=== PATIENT | female | born 1995 | race Caucasian/White ===

== ENCOUNTER → 2016-07-05 13:15 | Outpatient (CLI) | payer MEDICAID | END | disposition home or self-care (01) | LOC: D.US 13:15 | DX: O28.1 Abnormal biochemical finding on antenatal screening of mother (principal) ==

== ENCOUNTER 2016-11-03 05:37 | Inpatient (IN) | payer MEDICAID ==
[2016-11-03] VITALS (10 sets, daily range): BP systolic 103–132; BP diastolic 58–87; Ht 152.4 cm; Wt 51.4 kg
[~2016-11-03] VITALS: Ht 152.4 cm; Wt 51.4 kg
[2016-11-03] MEDS ORDERED: SLOW RELEASE I160 MG (06:10)
[2016-11-03 06:30] LABS: HEMATOCRIT 33.7 % (36.0-48.0); HEMOGLOBIN 11.6 g/dL (12-16); MCH 31.4 pg (26.0-34.0); MCHC 34.4 g/dL (31.0-37.0); MCV 91.3 fL (80.0-100.0); MEAN PLATELET VOLUME 11.2 fL (7.4-10.4); RBC 3.69 10x6/uL (4.00-5.40); RDW 14.5 % (11.5-14.5); WBC 9.7 10x3/uL (4.8-10.8)
--- NOTE | 2016-11-03 08:47 | NUR ---
FUNDUS MIDLINE, FIRM, AT THE UMBILICUS. LOCIA MODERATE
--- NOTE | 2016-11-03 09:06 | NUR ---
Received by bed to room with bedside report. Pt is awake and positions self to sitting up in bed. Rates pain at 3/10 at this time, she is able to move her feet only as of now, she states her understanding that feeling to her legs will gradually return. IV to right hand patent and infusing NS with 20units pitocin placed on pump per orders. SCD on and connected to pump that is turned on. Fundus firm at u/1 with scant bleeding noted without clots. Correa to bedside drain with 250ml clear urine to collection canister. Bikini incision with steri strips clean and dry, offered ice pack to cover incision and aid with pain relief but pt refuses She does use small pillow to brace abdomen as she takes several deep breaths and coughs Denies nausea and ask for large ice water to drink. Nursery nurse at bedside at this time.
--- NOTE | 2016-11-03 09:16 | NUR ---
Demerol lead game designer started, 50mg loading dose given. Family allowed to room. Pt is provided with nursery number to call to check on infant.
--- NOTE | 2016-11-03 09:30 | NUR ---
fundus firm at u/1, rates pain at 2/10. large cup of ice per pt request. family at bedside, call light in reach.
--- NOTE | 2016-11-03 09:45 | NUR ---
fundus firm with massage, no clots noted.
--- NOTE | 2016-11-03 10:15 | NUR ---
fundus firm at u/2, light bleeding and no clots noted. Tracey pad changed and aguayo care given. continue to rate pain at 3/10.
--- NOTE | 2016-11-03 10:50 | NUR ---
fundus firm at u/1, scant bleeding noted at this time and no clots with massage. Pt denies needs for nurse.
--- NOTE | 2016-11-03 12:31 | NUR ---
PT'S IV PUMP SOUNDING. THIS RN TO BEDSIDE. NEW BAG OF PITOCIN UP TO INFUSE AT 125ML/HR. PT REQUEST PADS/CHUX BE CHANGED. PERICARE DONE. PADS/CHUX CHANGED, ONE NICKEL SIZE CLOT NOTED. SCANT TO SMALL LOCHIA NOTED. PT MOVES SELF UP IN BED. REQUEST TO KNOW WHEN SHE CAN GET OUT OF BED. TEACHING PROVIDED. PT VERBALIZES UNDERSTANDING AND IS AGREEABLE. NO FURTHER NEEDS VOICED AT THIS TIME.
--- NOTE | 2016-11-03 13:15 | NUR ---
Correa bag emptied, total of 1000 ml clear urine. in crib at bedise. side rails up x 2 with call light in reach. Rate pain at 1/10
--- NOTE | 2016-11-03 15:15 | NUR ---
called to room, assistance provided with changing shirt and swaddling in blankets. Pt rates pain at 1/10 and questions when she will be able to get up and start walking, explained that typcially it is 12 hours post delivery but orders would be verified. Denies any needs at this time. Side rails up x 2 with phone and call light in reach.
--- NOTE | 2016-11-03 17:01 | NUR ---
Pt calls for nurse, asked for towels and chux to be changed. fundus firm at u/u with light bleeding noted without clots. she is able to raise her bottom up from the bed for pink pad, chux and towels to all be changed. VS as charted, she denies passing any gas at this time but does have hypoactive bowel sounds x 4. infant in crib at bedside.
--- NOTE | 2016-11-03 18:42 | NUR ---
aguayo cath emptied with 900ml clear urine noted. Ivac pumps cleared with 1135ml Ns with 20units pit and 14.00 of Demerol consumer electronics merchandiser to have infused since 905. Rates pain at 2/10, bonding with infant without needs at this time.
--- NOTE | 2016-11-03 19:31 | NUR ---
PT. C/O THAT SHE FEELS THAT HER BLADDER IS FULL. TUBING MOVED AROUND AND IMMEDIATE RETURN OF 550CC URINE. PT. STATES SHE FEELS RELIEF. SITTING UP IN BED WITH HOB AT 30 DEGREES. IN OPEN CRIB AT BEDSIDE. ABD. INCISION NOTED WITH STERI STRIPS WHICH ARE CLEAN AND DRY. INFORMED OF POC. PT. STATES THAT SHE IS READY TO GET PINEDA OUT. IV SITE NOTED IN RT. HAND WITHOUT REDNESS NOR EDEMA NOTED. RATES PAIN A 4 OF 10 ON PAIN SCALE WHICH IS STATES IS BACKPAIN AND INCISIONAL PAIN. BREATH SOUNDS CLEAR AND BOWEL SOUNDS AUDIBLE. FOB AT BEDSIDE. DARON NUNEZ SCANT. DEMONSTRATED USE OF INCENTIVE SPIROMETER AND ABLE TO ACHIEVE 1700 ON METER. SCDS ON AND PUMP FUNCTIONAL.
--- NOTE | 2016-11-03 19:38 | NUR ---
TORADOL 30 MG GIVEN IVP SLOWLY. IV OF 1000CC NS WITH 20 UNITS PITOCIN ADDED INFUSING AT 125CC/ HR. PT INFORMED THAT IV WOULD BE LEFT IN PLACE FOR APPROXIMATELY 30 MORE MINUTES.
--- NOTE | 2016-11-03 19:47 | NUR ---
PINEDA CATH. DISCONTINUED. PT. PUSHED PATTERN WHEEL MAKER OF DEMEROL. ICE WATER PROVIDED TO PT. LINENS PROVIDED TO FOB FOR SOFA AND ASSISTED FOB IN PULLING COUCH INTO BED.
--- NOTE | 2016-11-03 20:10 | NUR ---
PT. RATES PAIN A 2.5 OF 10 ON PAIN SCALE. LYING IN RT. TILT WITH HOB AT 30 DEGREES. PT. CHEERFUL AND STATES SHE IS LOOKING FORWARD TO GETTING HER OWN CLOTHES ON. ENCOURAGED PT. TO WAIT UNTIL SHE GETS UP TO BATHROOM TO PUT THEM ON. PT. AGREEABLE.
--- NOTE | 2016-11-03 20:20 | NUR ---
IV AND SENIOR COMPUTER SPECIALIST OFF. DEMEROL SENIOR COMPUTER SPECIALIST WITH 5.85 MLS REMAINING.
--- NOTE | 2016-11-03 20:21 | NUR ---
IV LEFT SALINE LOCK IN RT HAND AREA. NO REDNESS NOR EDEMA NOTED.
--- NOTE | 2016-11-03 21:10 | NUR ---
AMBULATORY TO BATHROOM. WALKED UPRIGHT AND WITH STEADY GAIT. PT. REQUESTING TO PUT ON OWN CLOTHES. TO BATHROOM AND VOIDED LARGE AMT. AND STATES THAT SHE DIDN'T REALIZE THAT SHE WAS "THAT FULL". ASSISTED PT. WITH GUDELIA PANTIES AND PADS AND ALSO GETTING HER OWN CLOTHES ON. TO SINK TO WASH HANDS AND THEN TO BED. PT. AMBULATED WITHOUT ASSISTANCE. CHEERFUL. SCDS OFF AT THIS TIME. PT. ENCOURAGED TO MOVE LEGS ABOUT IN BED IS SHE DESIRED SCDS TO REMAIN OFF. PT. STATED UNDERSTANDING.
--- NOTE | 2016-11-03 21:13 | NUR ---
INFANT TRANSPORTED VIA OPEN CRIB TO ROOM. ID BANDS VERIFIED PER PROTOCOL. INFANT PLACED IN MOTHER'S ARMS. PT DENIES FURTHER NEEDS AT THIS TIME.
--- NOTE | 2016-11-03 21:20 | NUR ---
INFANT TAKEN INTO ROOM TO MOTHER.
--- NOTE | 2016-11-03 22:20 | NUR ---
LYING ON LT SIDE WITH EYES CLOSED. FOB ON SOFA SLEEPING. INFANT IN OPEN CRIB AT BEDSIDE MOVING ABOUT.
--- NOTE | 2016-11-03 23:03 | NUR ---
SITTING UP IN BED FEEDING . RATES PAIN A 6 OF 10 ON PAIN SCALE. STATES SHE HAD GOTTEN UP TO BATHROOM.
--- NOTE | 2016-11-03 23:24 | NUR ---
PT. CALLED REPORTING THAT SHE HAD COMPLETED FEEDING . HOLDING AT PRESENT. VITAL SIGNS OBTAINED. SCDS REAPPLIED. CAUTIONED PT. TO REMEMBER THAT SCDS ON LEGS PRIOR TO GETTING UP TO BATHROOM. PT. STATES UNDERSTANDING. FOB SLEEPING ON SOFA. OFFERED TO RETURN TO NBN BUT PT. DESIRES TO HOLD LONGER.
--- NOTE | 2016-11-04 01:10 | NUR ---
INFANT RETURNED TO N PER PT. REQUEST. PT. STATES SHE IS AFRAID TO SLEEP WHEN INFANT IS IN ROOM. FOB ASLEEP ON SOFA. PT. DENIES ANY NEEDS AT THIS TIME.
--- NOTE | 2016-11-04 02:35 | NUR ---
PT. C/O PAIN ON RT SIDE. AMBULATING TO BATHROOM TO VOID. REQUESTING PAIN MED.
--- NOTE | 2016-11-04 02:44 | NUR ---
PAIN MED GIVEN REQUESTED FOR PAIN SCORE OF 7 OF 10. PT. REPORTS THAT BLADDER WAS FULL WHEN SHE WENT TO BATHROOM AND PAIN DECREASED SINCE EMPTYING. ICE WATER PROVIDED.
[2016-11-04 02:46] VITALS: BP 114/73
--- NOTE | 2016-11-04 02:46 | NUR ---
VITAL SIGNS OBTAINED. SCDS REAPPLIED AND FUNCTIONAL.
--- NOTE | 2016-11-04 03:17 | NUR ---
LYING ON LT SIDE WITH HOB ELEVATED TO 30 DEGREES. EYES CLOSED AND RESPIRATIONS REGULAR.
[2016-11-04 05:08] LABS: HEMATOCRIT 33.5 % (36.0-48.0); HEMOGLOBIN 11.2 g/dL (12-16); MCH 30.9 pg (26.0-34.0); MCHC 33.4 g/dL (31.0-37.0); MCV 92.5 fL (80.0-100.0); MEAN PLATELET VOLUME 10.8 fL (7.4-10.4); RBC 3.62 10x6/uL (4.00-5.40); RDW 14.8 % (11.5-14.5)
[2016-11-04 05:12] LABS: WBC 13.7 10x3/uL (4.8-10.8)
[2016-11-04 06:16] LABS: RAPID PLASMA REAGIN Non Reactive (Non Reactive)
--- NOTE | 2016-11-04 06:30 | NUR ---
INFANT TO ROOM PER PT REQUEST. DENIES ANY REQUEST.
--- NOTE | 2016-11-04 07:04 | NUR ---
PT. STATES HER BLADDER WAS FULL AND GOT UP TO BATHROOM AND THEN BACK TO BED AND RATES PAIN A 7 OF 10 ON PAIN SCALE. PAIN MED GIVEN REQUESTED. HOLDING INFANT AT PRESENT. FOB ON SOFA SLEEPING.
--- NOTE | 2016-11-04 07:10 | NUR ---
PT SITTING UP IN THE BED, HOLDING INFANT. PT DENIES NEEDS AT THIS TIME. SR UP X 2, CALL LIGHT AND PHONE WITHIN REACH.
--- NOTE | 2016-11-04 07:10 | NUR ---
BEDSIDE SHIFT REPORT RECEIVED FROM Rebecca MCCARTY RN.
--- NOTE | 2016-11-04 07:19 | OP ---
PATIENT NAME: JENNIFER OLIVEROS MEDICAL RECORD: [id number] :95 LOCATION:[id number] ADMISSION DATE:11/03/16 SURGEON: OLIVA DEXTER MD DATE OF OPERATION: 11/03/2016 PREOPERATIVE DIAGNOSIS: Previous section, term gestation, undesired fertility. POSTOPERATIVE DIAGNOSIS: Previous section, term gestation, undesired fertility. PROCEDURE: Repeat low transverse section and bilateral salpingectomy. SURGEON: Oliva Dexter MD ANESTHESIA: Spinal. FINDINGS: A 5-pound 8-ounce male with 9 and 9 Apgars, clear fluid, normal tubes. ESTIMATED BLOOD LOSS: 800 cc. COMPLICATIONS OF SURGERY: None. OPERATIVE NOTE: The patient was taken to the OR and after adequate spinal anesthesia, prepped and draped in the usual manner for abdominal procedures. A transverse incision was made in the lower abdomen and extended through subcutaneous tissue and fascia. The peritoneum elevated and incised. Adhesions were encountered from the lower uterine segment to the posterior aspect of the anterior abdominal wall. These were carefully lysed with Metzenbaum scissors and blunt dissection. Transverse incision was then made in the lower uterine segment without difficulty. was delivered through the uteroabdominal incision without difficulty. was thoroughly suctioned, cord doubly clamped and ligated and the handed to awaiting nursery personnel. The uterus was inspected and placenta was delivered manually. Uterine incision closed in two layers, first layer running interlocking #1 chromic suture, the final layer a running #1 chromic suture. Bleeding areas from previous adhesions on the lower uterine segment were carefully treated with electrocautery without difficulty. Tubes were inspected and then removed using electrocautery and 2-0 Vicryl free ties. Hemostasis was good. Tubal segments were sent to pathology for further evaluation. The pelvis and abdomen were then copiously irrigated with lactated Ringer solution and suctioned and hemostasis inspected and confirmed. Jairo was applied to the lower uterine segment areas of dissection. Sponge, needle counts were correct. Fascial layer closed in a running noninterlocking #1 PDS loop suture. Skin incision reapproximated with subcuticular 2-0 plain gut suture. Dermabond was applied, a Steri-Strip dressing was applied and the patient went to the recovery area in good condition. TRANSINT:[id number] Voice Confirmation ID: [id number] DOCUMENT ID: [id number] OPERATIVE REPORT [id number] JENNIFER OLIVEROS BRENDA MD at 0719 CC: [id number] DICTATION DATE: 11/03/16 0832 MEDICAID ELIGIBILITY SPECIALIST: 11/03/16 1057 ADM IN [place] [id number] [place] [id number]
--- NOTE | 2016-11-04 07:30 | NUR ---
DR. DEXTER ON UNIT, TO ROOM TO SPEAK WITH PT.
--- NOTE | 2016-11-04 07:30 | NUR ---
AM ASSESSMENT COMPLETED, PT DENIES HEAVY BLEEDING OR PASSING CLOTS. IN ROOM IN CRIB, RESWADDLED INFANT AT PT'S [facility]. CLEAR LIQUID BREAKFAST SERVED, REPLACED WITH REGULAR BREAKFAST TRAY WITH DR. GUTIERREZ TO DRINK AT PT'S REQUEST. ABD PALPATES SOFT, INCISION WITH STERISTRIPS, C/D/I. PT DENIES PASSING GAS OF YET, STATES "I MAY HAVE DONE IT IN MY SLEEP". DENIES N/V, DENIES DIZZINESS OR SOB. SR UP X2, CALL LIGHT AND PHONE WITHIN REACH.
[2016-11-04 07:35] VITALS: BP 111/62
--- NOTE | 2016-11-04 10:30 | NUR ---
PT CALLS OUT PLATFORM ARCHITECT LIGHT REQUESTING PAIN MEDICATION FOR INCISIONAL PAIN. SEE EMAR FOR ALL MEDS ADM BY THIS RN. PT DENIES OTHER NEEDS AT THIS TIME. SR UP X 2, CALL LIGHT AND PHONE WITHIN REACH. FAMILY AT BEDSIDE.
--- NOTE | 2016-11-04 10:45 | NUR ---
PT REQUESTS ABD BINDER TO ABDOMEN, PLACED. PT STATING "THAT FEELS MUCH BETTER ALREADY". DENIES OTHER NEEDS.
--- NOTE | 2016-11-04 11:45 | NUR ---
LUNCH TRAY SERVED BY DIETARY. PT DENIES NEEDS AT THIS TIME. PT AMBULATORY IN ROOM. SR UP X 2, CALL LIGHT AND PHONE WITHIN REACH.
[2016-11-04 12:00] VITALS: BP 112/68
--- NOTE | 2016-11-04 15:30 | NUR ---
PT REPORTS FEELING PAIN IN HER UPPER RIGHT ABD AND RIGHT SHOULDER. PT ENCOURAGED TO WALK IN HALLWAYS. WARM BLANKET PROVIDED TO THIS AREA FOR HER COMFORT. PT DENIES OTHER NEEDS, DENIES WANTING PAIN MEDICATION AT THIS TIME.
--- NOTE | 2016-11-04 16:20 | NUR ---
PT TRANSFERRED TO AMBULATORY WITH INFANT IN CRIB. TO #[id number], ORIENTED TO ROOM. FRESH ICE WATER PROVIDED. SIG OTHER AT BEDSIDE. SR UP X 2, CALL LIGHT AND PHONE WITHIN REACH. PT DENIES OTHER NEEDS AT THIS TIME. REPORT GIVEN TO Joel BLANCAS RN.
--- NOTE | 2016-11-04 17:30 | NUR ---
ROUNDS MADE. PT CONTINUES TO C/O OF GAS PAIN. DENIES PASSING FLATUS. GAS X OFFERED. PT ACCEPTS. GAS X 80 MG POGIVEN. COFFEE OFFERED AND PT ENCOURAGED TO AMULATE FURTHER IN HALLS TO HELP MOVE TRAPPED GAS. PT IS AGREEABLE TO DO SO. COFFEE SERVED.
--- NOTE | 2016-11-04 18:32 | NUR ---
ROUNDS MADE. PT SITTING UP IN BED W/ IN CRIB AT [facility]. PT REPORTS SHE IS GOING TO TAKE INFANT TO NBN AND TAKE A LONG WALK AROUND HOSPITAL TO TRY AND RELIEVE GAS PAIN IN SHOULDERS. NO NEEDS VOICED AT THIS TIME.
--- NOTE | 2016-11-04 18:36 | NUR ---
PT AMBUATORY OFF UNIT AT THIS TIME.
--- NOTE | 2016-11-04 18:50 | NUR ---
PT RETURNS TO ROOM. REPORT GIVEN TO ON COMING PM SHIFT.
--- NOTE | 2016-11-04 19:25 | NUR ---
PT C/O R SHOULDER PAIN AND RUE PAIN. DENIES PASSING GAS. IS AMBULATORY. PRN SUPPOSITORY ADMINISTERED ORDERED FOR GAS PAIN. VS EVALUATED. ASSESSMENT COMPLETED. ALSO PROVIDED PT WITH WARM PAD TO APPLY TO SHOULDER TO EASE DISCOMFORT. PT SIPPING ON PRUNE JUICE. ENCOURAGED AMBULATION FREQUENTLY. PT VERBALIZES UNDERSTANDING.
[2016-11-04 19:30] VITALS: BP 107/61
--- NOTE | 2016-11-04 20:17 | NUR ---
CALL LIGHT ANSWERED. PAIN LEVEL "8"/10 FROM ABD INCISION POST C/S--DAY 1. DEMEROL 100mg PO GIVEN FOR PAIN MANAGEMENT.
--- NOTE | 2016-11-04 21:00 | NUR ---
FEEDING HER BABY WITH FORMULA. GOOD INFANT-MATERNAL BONDING.
[2016-11-04 23:40] VITALS: BP 101/53
--- NOTE | 2016-11-04 23:40 | NUR ---
V/S STABLE. INFANT IN THE ROOM.
--- NOTE | 2016-11-05 00:30 | NUR ---
FEEDING HER BABY. GOOD INFANT-MATERNAL BONDING.
--- NOTE | 2016-11-05 02:30 | NUR ---
EYES CLOSED. LEFT UNDISTURBED.
--- NOTE | 2016-11-05 04:45 | NUR ---
EYES CLOSED. LEFT UNDISTURBED.
--- NOTE | 2016-11-05 06:30 | NUR ---
SLEEPING. SLEPT FAIRLY WELL DURING THE NIGHT. CONTINUING PLAN OF CARE. ANTICIPATES DISCHARGE TODAY.
--- NOTE | 2016-11-05 07:30 | NUR ---
PT WAS RECEIVED THIS AM LYING IN BED. SHE OFFERS NO COMPLAINTS. GEN- AWAKE AND ALERT. LUNGS- CLEAR. HEART- RRR. ABD- SOFT, WITH TENDERNESS. BS +. BIKINI LINE INCISION WITH STERI STRIPS NOTED. CLEAN DRY AND INTACT. SMALL LOCIA RUBRA. EXT- NO EDEMA. BED IS LOW. SIDE RAILS UP X 2 AND CALL LIGHT IN REACH.
[2016-11-05 07:45] VITALS: BP 98/68
--- NOTE | 2016-11-05 08:45 | NUR ---
PT IS RESTING. OFFERS NO COMPLAINTS. AND BABY AT BEDSIDE.
--- NOTE | 2016-11-05 10:00 | NUR ---
PT ASKED FOR HER TOWEL TO BE WARMED SO SHE CAN PUT ON HER ABDOMEN FOR HER GAS. THIS WAS WARMED IN A PLASTIC BAG.
--- NOTE | 2016-11-05 11:00 | NUR ---
PT IS UP AMBULATING AROUND ROOM. OFFERS NO COMPLAINTS.
[2016-11-05] MEDS ORDERED: MOTRIN600 MG PO (11:04)
[2016-11-05] MEDS ORDERED: MEPERIDINE HCL50 MG PO (11:05)
--- NOTE | 2016-11-05 13:00 | NUR ---
PT GETTING THINGS READY TO GO HOME. SHE OFFERS NO COMPLAINTS.
--- NOTE | 2016-11-05 14:00 | NUR ---
PTS DISCHARGE INSTRUCTIONS DISCUSSED AND HANDOUTS GIVEN WELL FU APPTS AND PRESCRIPTIONS. PT HAD NO QUESTIONS. PT WENT TO VEHICLE BY WHEELCHAIR.
== END 2016-11-05 14:00 | disposition home or self-care (01) | DRG 766 ==
LOC: D.LD 05:37 → D.WS 11-04 16:30
PROVIDERS: ADMIT Obstetrics & Gynecology
PROC: 10D00Z1 Extraction of Products of Conception, Low, Open Approach (ICD-10-PCS; principal; 2016-11-03 07:30)
PROC: 0UB70ZZ Excision of Bilateral Fallopian Tubes, Open Approach (ICD-10-PCS; 2016-11-03 07:30)
DX: O34.211 Maternal care for low transverse scar from previous cesarean delivery (principal); O36.0930 Maternal care for other rhesus isoimmunization, third trimester, not applicable or unspecified; Z30.2 Encounter for sterilization; Z3A.39 39 weeks gestation of pregnancy; Z37.0 Single live birth